=== PATIENT | male | born 1955 | race Caucasian/White ===

== ENCOUNTER 2021-03-18 11:27 | Emergency (ER) | payer OTHER ==
[2021-03-18] MEDS ORDERED: Diphtheria,Pertussis(Acell),Tetanus Vaccine 0.5 ML Syringe IM ONE (11:41)
[2021-03-18] MEDS ORDERED: Lidocaine 1% 10 ML MDV INJECT ONE (11:41)
--- NOTE | 2021-03-18 11:52 | EDM.PDOC ---
ED HPI GENERAL MEDICAL PROBLEM - General Chief Complaint: Upper Extremity Injury/Pain Stated Complaint: FINGER LACERATION TO RIGHT THUMB/5TH DIGIT Time Seen by Provider: 03/18/21 11:30 Source of Information: Reports: Patient History Limitations: Reports: No Limitations - History of Present Illness INITIAL COMMENTS - FREE TEXT/NARRATIVE: 65 YO WM PRESENTS TO ER WITH SKIN AVULSION TO TIP OF RIGHT THUMB AND 5TH DIGIT LACERATION FROM TABLE SAW INJURY. PT REPORTS HE WAS PUSH WOOD THROUGH A TABLE SAW AND ACCIDENTALLY CUT HIS FINGERS ON THE BLADE OF THE SAW. BLEEDING WAS CONTROLLED AT TIME OF INJURY WITH PRESSURE. PT REPORTS FULL RANGE OF MOTION TO FINGERS OF RIGHT HAND BUT HAS NOTICED SOME CATCHING OF HIS EXTENSOR TENDON OF RIGHT 5TH DIGIT. PT DENIES LOSS OF SENSATION TO FINGERS OR HAND. Onset: Today Location: Reports: Upper Extremity, Right Quality: Reports: Ache Severity: Moderate Improves with: Reports: Rest Worsens with: Reports: Movement Associated Symptoms: Reports: No Other Symptoms - Related Data Allergies Allergy/AdvReac Type Severity Reaction Status Date / Time No Known Drug Allergies Allergy Cannot Verified 03/18/21 11:56 Remember Home Meds: Home Meds Doxycycline Monohydrate 100 mg PO BID #20 cap 03/18/21 [Rx] traMADol [Ultram] 50 mg PO Q6H PRN #15 tab 03/18/21 [Rx] Review of Systems - Review of Systems Review Of Systems: See Below Constitutional: Reports: No Symptoms Eyes: Reports: No Symptoms Ears: Reports: No Symptoms Nose: Reports: No Symptoms Mouth/Throat: Reports: No Symptoms Respiratory: Reports: No Symptoms Cardiovascular: Reports: No Symptoms GI/Abdominal: Reports: No Symptoms Genitourinary: Reports: No Symptoms Musculoskeletal: Reports: Hand Pain Skin: Reports: Wound (SKIN AVULSION TO TIP OF RIGHT THUMB/5CM LACERATION TO DORSUM OF RIGHT 5TH DIGIT) Neurological: Reports: No Symptoms Psychiatric: Reports: No Symptoms ED EXAM, GENERAL - Physical Exam Exam: See Below Exam Limited By: No Limitations General Appearance: Alert, WD/WN, No Apparent Distress Head: Atraumatic, Normocephalic Neck: Normal Inspection, Supple, Non-Tender, Full Range of Motion Respiratory/Chest: No Respiratory Distress, Lungs Clear, Normal Breath Sounds, No Accessory Muscle Use, Chest Non-Tender Cardiovascular: Normal Peripheral Pulses, Regular Rate, Rhythm, No Edema, No Gallop, No JVD, No Murmur, No Rub GI/Abdominal: Normal Bowel Sounds, Soft, Non-Tender, No Organomegaly, No Distention, No Abnormal Bruit, No Mass Extremities: Normal Range of Motion, No Pedal Edema, Normal Capillary Refill Neurological: Alert, Oriented, CN II-XII Intact, Normal Cognition, Normal Gait, No Motor/Sensory Deficits Psychiatric: Normal Affect, Normal Mood Skin Exam: Wound/Incision (SKIN AVULSION TO TIP OF RIGHT THUMB/5CM LACERATION TO DORSUM OF RIGHT 5TH DIGIT) ED TRAUMA EXTREMITY PROCEDURES - Laceration/Wound Repair Right Digit - 5th (Baby) Lac/Wound Length In cm: 5 Appearance: Subcutaneous, Irregular Distal NVT: Neuro & Vascular Intact Anesthetic Type: Local Local Anesthesia - Lidocaine (Xylocaine): 1% Plain Local Anesthetic Volume: 5cc Skin Prep: Chlorhexidine (Hibiciens), Providone-Iodine (Betadine), Saline Exploration/Debridement/Repair: Wound Explored, In a Bloodless Field, Explored to Base Closed With: Sutures Suture Size: 4-0 # of Sutures: 5 Sterile Dressing Applied: Provider Tetanus Status Addressed: Yes Complications: No Right Distal Digit - 1st (Thumb) Lac/Wound Length In cm: 0 (SKIN AVULSION) Appearance: Subcutaneous Distal NVT: Neuro & Vascular Intact Skin Prep: Chlorhexidine (Hibiciens), Providone-Iodine (Betadine), Saline Exploration/Debridement/Repair: Wound Explored Closed With: Other (PRESSURE DRESSING APPLIED) Sterile Dressing Applied: Provider Tetanus Status Addressed: Yes Complications: No Course - Radiology Interpretation Free Text/Narrative:: RIGHT HAND- NO FRACTURE OR BONE INVOLVEMENT Departure - Departure Time of Disposition: 12:24 Disposition: Home, Self-Care 01 Condition: Good Clinical Impression: Avulsion of skin of finger Qualifiers: Encounter type: initial encounter Qualified Code(s): S61.209A - Unspecified open wound of unspecified finger without damage to nail, initial encounter Laceration of finger of left hand with complication Qualifiers: Encounter type: initial encounter Qualified Code(s): S61.412A - Laceration without foreign body of left hand, initial encounter - Discharge Information Prescriptions: Doxycycline Monohydrate 100 mg PO BID #20 cap traMADol [Ultram] 50 mg PO Q6H PRN #15 tab PRN Reason: Pain Instructions: Laceration Care, Adult, Deep Skin Avulsion Referrals: Juan Alejo, [employer] [Primary Care Provider] - Forms: ED Department Discharge Additional Instructions: 1. DISCHARGE HOME 2. FOLLOW UP WITH [facility] NEXT WEEK FOR FURTHER EVALUATION OF POSSIBLE LIGAMENT INJURY 3. WOUND INSTRUCTIONS GIVEN 4. TETANUS GIVEN 5. DOXYCYCLINE 100MG TWICE/DAY X 10 DAYS FOR WOUND PROPHYLAXIS 6. ULTRAM 50MG #15 1-2 EVERY 6 HOURS FOR PAIN NEEDED 7. RETURN TO ER FOR WORSENING SYMPTOMS 8. SUTURE REMOVAL 10-14 DAYS - Assessment/Plan Assessment:: 1. SKIN AVULSION TO TIP OF RIGHT THUMB 2. 5CM LACERATION TO DORSUM OF RIGHT 5TH DIGIT Plan: 1. DISCHARGE HOME 2. FOLLOW UP WITH [facility] NEXT WEEK FOR FURTHER EVALUATION OF POSSIBLE LIGAMENT INJURY 3. WOUND INSTRUCTIONS GIVEN 4. TETANUS GIVEN 5. DOXYCYCLINE 100MG TWICE/DAY X 10 DAYS FOR WOUND PROPHYLAXIS 6. ULTRAM 50MG #15 1-2 EVERY 6 HOURS FOR PAIN NEEDED 7. RETURN TO ER FOR WORSENING SYMPTOMS 8. SUTURE REMOVAL 10-14 DAYS
[2021-03-18] MEDS ORDERED: Bacitracin/Neomycin/Polymyxin B Oint 0.9 GM U/D Packet ONE (12:04)
--- NOTE | 2021-03-18 12:07 | CR ---
[id number] RAD/RAD Hand Right 3V EXAM: 4 VIEWS RIGHT HAND. INDICATION: CUTTING INJURY TO THUMB AND FIFTH DIGIT. COMPARISON: None. DISCUSSION: Soft tissue defect involving the distal aspect of the right 1st digit. No associated fracture is identified. Mild degenerative changes involving the interphalangeal joints. IMPRESSION: 1. As above. Acosta Rausch DO 03/18/21 0648 Thank you for allowing us to participate in the care of your patient.
[2021-03-18] MEDS ORDERED: Lidocaine 1% 20 ML MDV INJECT ONE (12:21)
[2021-03-18] MEDS ORDERED: Bacitracin/Neomycin/Polymyxin B Oint 0.9 GM U/D Packet TOP ONE (12:21)
== END 2021-03-18 12:30 | disposition home or self-care (01) ==
LOC: KA.ED 11:27
DX: S61.216A Laceration without foreign body of right little finger without damage to nail, initial encounter (principal); S61.001A Unspecified open wound of right thumb without damage to nail, initial encounter; Z23 Encounter for immunization; W27.0XXA Contact with workbench tool, initial encounter
CPT/HCPCS: 12002; 73130-RT; 90471; 90715; 99283-25

== ENCOUNTER 2023-10-12 07:49 | Inpatient (IN) | payer MEDICARE ==
[2023-10-12] MEDS ORDERED: Sodium Chloride 0.9% 10 ML Syringe FLUSH PRN (07:57)
[2023-10-12] MEDS: Sodium Chloride 0.9% 1,000 ML IV ONE (08:17)
[2023-10-12] MEDS: Albuterol/Ipratropium 3.0-0.5 MG/3 ML Neb Soln NEB ONE ×2 (08:18→08:50)
[2023-10-12 08:29] LABS: BASOPHILS ABSOLUTE AUTO 0.02 10^3/uL (0.00-0.10); BASOPHILS PERCENT AUTO 0.2 % (0.0-1.0); EOSINOPHILS ABSOLUTE AUTO 0.02 10^3/uL (0.10-0.30); EOSINOPHILS PERCENT AUTO 0.2 % (1.0-3.0); HEMATOCRIT 51.5 % (40.0-52.0); HEMOGLOBIN 16.6 g/dL (13.0-17.0); IMMATURE GRAN ABSOLUTE AUTO 0.01 10^3/uL (0.00-0.50); IMMATURE GRAN PERCENT AUTO 0.1 % (0.0-5.0); LYMPHOCYTES ABSOLUTE AUTO 1.13 10^3/uL (1.00-4.00); LYMPHOCYTES PERCENT AUTO 8.9 % (20.0-40.0); MEAN CORPUSCULAR HEMOGLOBIN 31.8 pg (27.0-31.0); MEAN CORPUSCULAR HGB CONC 32.2 g/dL (32.0-36.0); MEAN CORPUSCULAR VOLUME 98.7 fL (82.0-92.0); MEAN PLATELET VOLUME 9.6 fL (7.4-10.4); MONOCYTES ABSOLUTE AUTO 1.25 10^3/uL (0.10-0.80); MONOCYTES PERCENT AUTO 9.8 % (2.0-8.0); NEUTROPHILS ABSOLUTE AUTO 10.29 10^3/uL (2.50-7.00); NEUTROPHILS PERCENT AUTO 80.8 % (50.0-70.0); PLATELET COUNT,PLT 187 10^3/uL (150-400); RED BLOOD CELL COUNT 5.22 10^6/uL (4.50-6.00); RED CELL DISTRIBUTION WIDTH 13.9 % (11.5-14.5); WHITE BLOOD CELL COUNT,WBC 12.72 10^3/uL (5.00-10.00)
[2023-10-12] MEDS: methylPREDNISolone Sodium Succinate 125 MG/2 ML SDV IVPUSH ONE (08:51)
[2023-10-12 08:53] LABS: ALANINE AMINOTRANSFERASE,ALT 27 U/L (14-63); ALBUMIN 3.19 g/dL (3.40-5.00); ALKALINE PHOSPHATASE 64 U/L (46-116); ANION GAP 11.1 mmol/L (5-15); ASPARTATE AMNIOTRANSFERASE,AST 22 U/L (15-37); BILIRUBIN TOTAL 0.5 mg/dL (0.2-1.0); BLOOD UREA NITROGEN,BUN 12 mg/dL (7-18); CALCIUM 8.5 mg/dL (8.7-10.3); CHLORIDE,CL 100 mmol/L (98-107); GLUCOSE RANDOM 108 mg/dL (70-140); POTASSIUM,K 4.1 mmol/L (3.5-5.1); PROTEIN TOTAL,TP 7.4 g/dL (6.4-8.2); SODIUM,NA 136 mmol/L (136-145)
[2023-10-12 08:59] LABS: ESTIMATED GFR 95 mL/min (>=60)
[2023-10-12 09:20] LABS: INFLUENZA A NAA NEGATIVE (NEGATIVE); INFLUENZA B NAA NEGATIVE (NEGATIVE); RESPIRATORY SYNCYTIAL VIR NAA NEGATIVE (NEGATIVE)
[2023-10-12 09:21] LABS: CORONAVIRUS COVID-19 NAA NEGATIVE (NEGATIVE)
[2023-10-12] MEDS ORDERED: Ondansetron 4 MG Tab.DIS PO PRN (11:04)
[2023-10-12] MEDS ORDERED: Albuterol/Ipratropium 3.0-0.5 MG/3 ML Neb Soln NEB PRN (11:04)
[2023-10-12] MEDS ORDERED: Acetaminophen 325 MG Tab PO PRN (11:04)
[2023-10-12] MEDS: Levofloxacin/Dextrose 5%-Water 500 MG in Premix Bag 1 BAG IV SCH (12:52)
[2023-10-12] MEDS: methylPREDNISolone Sodium Succinate 40 MG/1 ML SDV IVPUSH SCH (12:52)
[2023-10-12] MEDS: Sodium Chloride 0.9% 50 ML IV SCH (12:53)
[2023-10-12] MEDS: Albuterol/Ipratropium 3.0-0.5 MG/3 ML Neb Soln NEB SCH (16:52)
[2023-10-13] MEDS: Levothyroxine 50 MCG Tab PO SCH (05:10)
[2023-10-13 06:43] LABS: APPEARANCE,URINE CLEAR (CLEAR); BILIRUBIN,URINE NEGATIVE (NEGATIVE); COLOR,URINE YELLOW (YELLOW); GLUCOSE,URINE NEGATIVE (NEGATIVE); KETONES,URINE NEGATIVE (NEGATIVE); LEUKOCYTE ESTERASE,URINE NEGATIVE (NEGATIVE); NITRITE,URINE NEGATIVE (NEGATIVE); OCCULT BLOOD,URINE NEGATIVE (NEGATIVE); PH,URINE 6.5 (5.0-9.0); PROTEIN,URINE 30 mg/dL (NEGATIVE); UROBILINOGEN,URINE 0.2 E.U./dL (0.2-1.0)
[2023-10-13 07:12] LABS: BACTERIA,URINE RARE /HPF (NONE TO FEW); EPITHELIAL CELLS,URINE RARE /LPF; RBC,URINE 0-5 /HPF (0-5); WBC,URINE 0-5 /HPF (0-5)
[2023-10-13 07:42] LABS: WHITE BLOOD CELL COUNT,WBC 9.36 10^3/uL (5.00-10.00)
[2023-10-13 07:43] LABS: HEMOGLOBIN 15.7 g/dL (13.0-17.0); MEAN CORPUSCULAR HEMOGLOBIN 31.9 pg (27.0-31.0); MEAN CORPUSCULAR VOLUME 99.6 fL (82.0-92.0); MEAN PLATELET VOLUME 9.2 fL (7.4-10.4); PLATELET COUNT,PLT 182 10^3/uL (150-400); RED BLOOD CELL COUNT 4.92 10^6/uL (4.50-6.00); RED CELL DISTRIBUTION WIDTH 13.7 % (11.5-14.5)
[2023-10-13 08:11] LABS: ALBUMIN 2.89 g/dL (3.00-4.80); ANION GAP 6.9 mmol/L (5-15); BILIRUBIN TOTAL 0.2 mg/dL (0.2-1.0); CALCIUM 8.4 mg/dL (8.7-10.3); CREATININE 0.81 mg/dL (0.51-1.17); EST CRCL DRUG DOSING (CG) 90.38 mL/min; POTASSIUM,K 4.9 mmol/L (3.3-5.3); PROTEIN TOTAL,TP 7.2 g/dL (6.4-8.2)
[2023-10-13] MEDS: Enoxaparin 40 MG/0.4 ML Syringe SUBCUT SCH (08:34)
[2023-10-13] MEDS: Furosemide 40 MG/4 ML VIAL IVPUSH ONE (12:21)
[2023-10-14 07:34] LABS: HEMATOCRIT 48.3 % (40.0-52.0); HEMOGLOBIN 15.6 g/dL (13.0-17.0); MEAN CORPUSCULAR HEMOGLOBIN 31.6 pg (27.0-31.0); MEAN CORPUSCULAR HGB CONC 32.3 g/dL (32.0-36.0); MEAN PLATELET VOLUME 9.6 fL (7.4-10.4); PLATELET COUNT,PLT 202 10^3/uL (150-400); RED BLOOD CELL COUNT 4.93 10^6/uL (4.50-6.00); RED CELL DISTRIBUTION WIDTH 13.9 % (11.5-14.5); WHITE BLOOD CELL COUNT,WBC 10.83 10^3/uL (5.00-10.00)
[2023-10-14 07:46] LABS: ALBUMIN 3.03 g/dL (3.40-5.00); ANION GAP 10.7 mmol/L (5-15); BILIRUBIN TOTAL 0.3 mg/dL (0.2-1.0); CALCIUM 8.8 mg/dL (8.7-10.3); CARBON DIOXIDE,CO2 33.5 mmol/L (21.0-32.0); CREATININE 0.77 mg/dL (0.51-1.17); EST CRCL DRUG DOSING (CG) 95.08 mL/min; POTASSIUM,K 4.2 mmol/L (3.5-5.1); PROTEIN TOTAL,TP 7.2 g/dL (6.4-8.2)
== END 2023-10-14 11:11 | disposition home or self-care (01) | DRG 189 ==
LOC: KA.ED 07:49 → KA.MS 10:07
PROVIDERS: ADMIT Internal Medicine; ATTEND Internal Medicine
DX: J96.01 Acute respiratory failure with hypoxia (principal); R09.02 Hypoxemia; J44.1 Chronic obstructive pulmonary disease with (acute) exacerbation; Z79.890 Hormone replacement therapy; F17.210 Nicotine dependence, cigarettes, uncomplicated; Z79.899 Other long term (current) drug therapy
CPT/HCPCS: 0241U; 36415; 71045; 80053; 81001; 83605; 83880; 84484; 85025; 85027; 87040; 94640; 96361; 96374; 99223; 99233; 99239; 99285; 93010; 99284; A9270-GY; J1650; J1940; J1956; J2919; J3490; J7030; J7620-GY; Q3014